=== PATIENT | female | born 1950 | race African-American/Black ===

== ENCOUNTER → 2016-12-12 | Outpatient (CLI) | payer OTHER, MEDICAID ==
--- NOTE | 2016-12-12 16:38 | DX ---
Right Humerus, 2 Views History: History of right humerus fracture and history of myeloma. Follow up. Comparison: September 2016. Findings: There is a transverse fracture at the surgical neck at the right humerus. There has been so me mild progressive foreshortening at the fracture with otherwise stable alignment. No evidence of br idging bone at the fracture. There is callus formation more predominantly laterally and posteriorly a t the fracture. There is diffuse demineralization. Impression: There has been progressive impaction at the fracture of the proximal right humerus with c allus formation but no bridging bone.
== END ==
LOC: FIMAGING 14:28
PROVIDERS: ATTEND Internal Medicine Hematology & Oncology
DX: S42.211G Unspecified displaced fracture of surgical neck of right humerus, subsequent encounter for fracture with delayed healing (principal); Z85.820 Personal history of malignant melanoma of skin

== ENCOUNTER → 2017-02-06 | Outpatient (CLI) | payer OTHER, MEDICAID | LOC: FLAB 15:05 | PROVIDERS: ATTEND Internal Medicine Hematology & Oncology | DX: S42.211D Unspecified displaced fracture of surgical neck of right humerus, subsequent encounter for fracture with routine healing (principal) ==

== ENCOUNTER → 2017-04-08 | Outpatient (CLI) | payer OTHER, MEDICAID | LOC: FIMAGING 12:35 | PROVIDERS: ATTEND Orthopaedic Surgery | DX: M84.421A Pathological fracture, right humerus, initial encounter for fracture (principal); C90.00 Multiple myeloma not having achieved remission; R93.6 Abnormal findings on diagnostic imaging of limbs; M75.111 Incomplete rotator cuff tear or rupture of right shoulder, not specified as traumatic; M75.51 Bursitis of right shoulder; M25.411 Effusion, right shoulder ==

== ENCOUNTER 2017-12-03 20:11 | Inpatient (IN) | payer OTHER, MEDICAID ==
--- NOTE | 2017-12-03 20:21 | CPEKG ---
Heart Rate: 87 RR Interval: 690 P-R Interval: 152 QRSD Interval: 100 QT Interval: 404 QTC Interval: 486 P Stratford: 59 QRS Stratford: -33 T Wave Stratford: 75 EKG Severity - ABNORMAL ECG - EKG Impression: UNKNOWN RHYTHM, IRREGULAR RATE 77-107 EKG Impression: LEFT AXIS DEVIATION EKG Impression: LVH WITH SECONDARY REPOLARIZATION ABNORMALITY EKG Impression: BORDERLINE PROLONGED QT INTERVAL EKG Impression: Similar to previous Electronically Signed By: Michael Love 03-Dec-2017 20:43:34
[2017-12-03] MEDS ORDERED: NS 2,500 ML IV ONE (20:29)
[2017-12-03] MEDS ORDERED: IPRATROPIUM/ALBUTEROL 3 ML DEYVIAL IH ONE (20:33)
--- NOTE | 2017-12-03 20:33 | EDPHY ---
H & P Stated Complaint: Congestion Time Seen by Provider: 12/03/17 20:25 HPI/ROS: CHIEF COMPLAINT: Cough, congestion HISTORY OF PRESENT ILLNESS: The patient is a 67-year-old female with a history of multiple myeloma who comes to the emergency department complaining of a cough and fever that began last 3 days. Tonight her called paramedics and when they arrived her oxygen saturations were 84%. She denies any history of pulmonary or cardiac disease. She denies chest pain, abdominal pain nausea vomiting or diarrhea. No headache. REVIEW OF SYSTEMS: Constitutional: See HPI EENTM: denies: blurred vision, double vision, nose congestion Respiratory: See HPI Cardiac: denies: chest pain, irregular heart rate, lightheadedness, palpitations Gastrointestinal/Abdominal: denies: abdominal pain, diarrhea, nausea, vomiting, blood streaked stools Genitourinary: denies: dysuria, frequency, hematuria, pain Musculoskeletal: denies: joint pain, muscle pain Skin: denies: lesions, rash, jaundice, bruising Neurological: denies: headache, numbness, paresthesia, tingling, dizziness, weakness Hematologic/Lymphatic: denies: blood clots, easy bleeding, easy bruising Immunologic/allergic: denies: HIV/AIDS, transplant EXAM: GENERAL: Well-appearing, overweight and in no acute distress. HEAD: Atraumatic, normocephalic. EYES: Pupils equal round and reactive to light, extraocular movements intact, sclera anicteric, conjunctiva are normal. ENT: TMs normal, nares patent, oropharynx clear without exudates. Moist mucous membranes. NECK: Normal range of motion, supple without lymphadenopathy or JVD. LUNGS: Bilateral rhonchi and some mild wheezing HEART: Regular rate and rhythm without murmurs, rubs or gallops. ABDOMEN: Soft, nontender, normoactive bowel sounds. No guarding, no rebound. No masses appreciated. BACK: No CVA tenderness, no spinal tenderness, step-offs or deformities EXTREMITIES: Normal range of motion, no pitting or edema. No clubbing or cyanosis. NEUROLOGICAL: Cranial nerves II through XII grossly intact. Normal speech, normal gait. 5/5 strength, normal movement in all extremities, normal sensation PSYCH: Normal mood, normal affect. SKIN: Warm, dry, normal turgor, no visible rashes or lesions. Source: Patient Exam Limitations: No limitations - Personal History Tetanus Vaccine Date: unsure - Medical/Surgical History Hx Asthma: No Hx Chronic Respiratory Disease: No Hx Diabetes: No Hx Cardiac Disease: No Hx Renal Disease: No Hx Cirrhosis: No Hx Alcoholism: No Hx HIV/AIDS: No Hx Splenectomy or Spleen Trauma: No Other PMH: MULTIPLE MYELOMA. Right mastectomy at age 18 for noncancerous lesion. Hypertension - Family History Significant Family History: No pertinent family hx - Social History Smoking Status: Never smoked Alcohol Use: Sober Constitutional: Initial Vital Signs Temperature (C) 38.1 C 12/03/17 20:16 Heart Rate 90 12/03/17 20:16 Respiratory Rate 20 12/03/17 20:16 Blood Pressure 125/58 H 12/03/17 20:16 O2 Delivery Mode Nasal Cannula O2 (L/minute) 2 Allergies/Adverse Reactions: No Known Allergies Allergy (Verified 12/03/17 20:25) Home Medications: Medication Instructions Recorded Acyclovir [Zovirax 400 mg (*)] 400 mg PO HS 11/15/11 Albuterol [Proventil Inhaler HFA 2 puffs IH Q4PRN PRN 11/15/11 (*)] Allopurinol 100 mg PO DAILY 11/15/11 Gabapentin [Neurontin 300 MG (*)] 900 mg PO BID 11/15/11 oxyCODONE/APAP 5/325 [Percocet 1 tab PO Q6H PRN 11/15/11 5/325 (*)] Ixazomib Citrate [Ninlaro] 4 mg PO AD 12/03/17 Potassium Cl [Klor-Con 10 meq (RX)] 10 meq PO BID 12/03/17 Dexamethasone [Decadron 4 MG (*)] 20 mg PO FR 12/05/17 Lenalidomide [Revlimid] 15 mg PO AD 12/05/17 Levobunolol 0.5% [BETAGAN 0.5% (*)] 1 drops EACHEYE BID 12/05/17 Sulfamethox/Tmp 800/160 mg 1 tab PO MWF 12/05/17 [Bactrim DS] HYDROcodone/CPM TUSSIONEX 5 ml PO HS #1 btl 12/06/17 [Tussionex Suspension (RX)] levOFLOXACIN [levAQUIN (*)] 750 mg PO DAILY #6 tab 12/06/17 Medical Decision Making - Diagnostics EKG Interpretation: An EKG obtained and was read and documented in trace view. Please see trace view for full reading and report. Sinus rhythm, slightly irregular, no acute ischemic changes Imaging: Discussed imaging studies w/ scallop shucker Radiologist ED Course/Re-evaluation: The patient appears to have left lower lobe infiltrate. She has severe sepsis but not septic shock. She has received a fluid bolus. She has received potassium supplementation. I will order antibiotics. I discussed the case with Dr. Camp who will admit to the medical service. Differential Diagnosis: Partial list of the Differential diagnosis considered include but were not limited to; influenza, pneumonia, sepsis, severe sepsis and although unlikely based on the history and physical exam, I also considered septic shock, acute coronary disease, PE, pulmonary edema. Critical Care Time: Critical care time spent by me, Dr. Love exclusive with this patient was 35 minutes, exclusive of the PA time exclusive of procedures. The organ system that was at risk was cardiovascular and I gave IV fluids, antibiotics, consultation and admission to prevent worsening of the patient's condition - Data Points Laboratory Results: Laboratory Results 12/03/17 20:12 12/03/17 20:12 Microbiology Results: MICROBIOLOGY 12/03/17 20:45 Blood Blood Culture - Preliminary 12/03/17 21:20 Blood Blood Culture - Preliminary Medications Given: Acetaminophen (Tylenol) 500 - 1,000 mg PO Q6HRS PRN PRN Reason: Pain, Mild/Fever, Can Take PO Stop: 06/01/18 21:30 Last Admin: 12/05/17 17:47 Dose: 1,000 mg Acyclovir (Acyclovir) 400 mg PO HS ELIAZAR Stop: 01/03/18 20:59 Last Admin: 12/05/17 21:36 Dose: 400 mg Albuterol/Ipratropium (Duoneb) 3 ml IH Q6HRS ELIAZAR Stop: 06/02/18 11:59 Last Admin: 12/06/17 10:50 Dose: 3 ml Allopurinol (Allopurinol) 100 mg PO DAILY ELIAZAR Stop: 06/03/18 08:59 Last Admin: 12/06/17 08:47 Dose: 100 mg Azithromycin (Zithromax) 500 mg PO DAILY ELIAZAR PRN Reason: Protocol Stop: 01/03/18 08:59 Last Admin: 12/06/17 08:47 Dose: 500 mg Dexamethasone (Decadron) 20 mg PO FR [facility] Stop: 06/03/18 14:59 Last Admin: 12/05/17 15:19 Dose: 20 mg Enoxaparin Sodium (Lovenox) 40 mg SC DAILY [facility] Stop: 06/02/18 08:59 Last Admin: 12/06/17 08:47 Dose: 40 mg Gabapentin (Neurontin) 900 mg PO BID [facility] Stop: 06/02/18 09:29 Last Admin: 12/06/17 08:47 Dose: 900 mg Potassium Chloride/Sodium Chloride (Ns W/ 20 Kcl/L) 1,000 mls @ 75 mls/hr IV CONT [facility] Stop: 06/01/18 21:44 Last Admin: 12/06/17 11:15 Dose: 1,000 mls Ceftriaxone Sodium 1 gm/ (Sterile Water) 10 mls @ 150 mls/hr IV DAILY [facility] PRN Reason: Protocol Stop: 01/03/18 08:59 Last Admin: 12/06/17 09:15 Dose: 10 mls Levobunolol HCl (Betagan 0.5%) 1 drops EACHEYE BID [facility] Stop: 06/03/18 20:59 Last Admin: 12/06/17 09:16 Dose: Not Given Ondansetron HCl (Zofran Odt) 4 mg PO Q4HRS PRN PRN Reason: Nausea/Vomiting, Use 1st Stop: 06/01/18 21:30 Last Admin: 12/05/17 17:38 Dose: 4 mg Oxycodone/Acetaminophen (Percocet 5/325) 1 tab PO Q6H PRN PRN Reason: *Pain Stop: 12/14/17 09:29 Last Admin: 12/05/17 08:41 Dose: 1 tab Potassium Chloride (Klor-Con) 10 meq PO BID [facility] Stop: 06/02/18 20:59 Last Admin: 12/06/17 08:47 Dose: 10 meq Trimethoprim/Sulfamethoxazole (Bactrim Ds) 1 ea PO MoWeFr [facility] PRN Reason: Protocol Stop: 01/04/18 15:14 Last Admin: 12/05/17 15:19 Dose: 1 ea Discontinued Medications Acetaminophen (Tylenol 160mg/5ml Oral Liquid) 1,000 mg PO ONCE ONE Stop: 12/03/17 21:30 Last Admin: 12/03/17 21:31 Dose: 1,000 mg Albuterol/Ipratropium (Duoneb) 3 ml IH EDNOW ONE Stop: 12/03/17 20:34 Last Admin: 12/03/17 21:11 Dose: 3 ml Sodium Chloride (Ns) 2,500 mls @ 5,000 mls/hr 30 ml/kg infuse over 30 min ( 2500 ml) IV EDNOW ONE PRN Reason: Protocol Stop: 12/03/17 20:58 Last Admin: 12/03/17 20:49 Dose: 2,500 mls Magnesium Sulfate (Magnesium Sulf 2 Gm (Premix)) 50 mls @ 50 mls/hr IV EDNOW ONE Stop: 12/03/17 21:44 Last Admin: 12/03/17 21:02 Dose: 50 mls Ceftriaxone Sodium 1 gm/ (Sterile Water) 10 mls @ 150 mls/hr IV EDNOW ONE PRN Reason: Protocol Stop: 12/03/17 21:05 Last Admin: 12/03/17 22:15 Dose: 10 mls Azithromycin 500 mg/ Dextrose 255 mls @ 255 mls/hr IV EDNOW ONE PRN Reason: Protocol Stop: 12/03/17 22:10 Last Admin: 12/03/17 22:09 Dose: 255 mls Magnesium Sulfate (Magnesium Sulf 2 Gm (Premix)) 50 mls @ 50 mls/hr IV ONCE ONE Stop: 12/04/17 08:46 Last Admin: 12/04/17 08:57 Dose: 50 mls Magnesium Sulfate/Dextrose (Magnesium Sulf 1 Gm (Premix)) 100 mls @ 100 mls/hr IV ONCE ONE Stop: 12/05/17 11:17 Last Admin: 12/05/17 10:47 Dose: 100 mls Potassium Chloride (Klor-Con) 40 meq PO EDNOW ONE Stop: 12/03/17 20:46 Last Admin: 12/03/17 21:02 Dose: 40 meq Potassium Chloride (Klor Packets) 40 meq PO EDNOW ONE Stop: 12/04/17 02:19 Last Admin: 12/04/17 02:50 Dose: 40 meq Potassium Chloride (Klor-Con) 10 - 40 meq PO ONCE ONE PRN Reason: Protocol Stop: 12/04/17 07:46 Last Admin: 12/04/17 08:56 Dose: 40 meq Potassium Chloride (Klor-Con) 30 meq PO ONCE ONE PRN Reason: Protocol Stop: 12/04/17 21:01 Last Admin: 12/04/17 21:55 Dose: 30 meq Potassium Chloride (Klor-Con) 10 - 40 meq PO ONCE ONE PRN Reason: Protocol Stop: 12/05/17 10:18 Last Admin: 12/05/17 10:48 Dose: 20 meq Potassium Chloride (Klor-Con) 10 meq PO ONCE ONE PRN Reason: Protocol Stop: 12/05/17 19:53 Last Admin: 12/05/17 21:36 Dose: 10 meq Departure - Departure Disposition: [facility] Inpatient Acute Clinical Impression: Severe sepsis, Hyperkalemia Pneumonia Qualifiers: Pneumonia type: due to unspecified organism Laterality: left Lung location: lower lobe of lung Qualified Code(s): J18.1 - Lobar pneumonia, unspecified organism Condition: Fair
[2017-12-03 20:38] LABS: PLATELET COUNT 90 10^3/uL (150-400)
[2017-12-03] MEDS ORDERED: MAGNESIUM SULF 2 GM/WATER 50 ML IV ONE (20:45)
[2017-12-03] MEDS ORDERED: POTASSIUM CL 20 MEQ TAB PO ONE (20:45)
[2017-12-03 20:46] LABS: INR 1.25 (0.83-1.16); PROTIME(PATIENT) 15.9 SEC (12.0-15.0)
[2017-12-03] MEDS ORDERED: cefTRIAXone 1 GM in STERILE WATER INJ 10 ML IV ONE (21:02)
[2017-12-03] MEDS ORDERED: AZITHROMYCIN IV 500 MG in D5W 250 ML IV ONE (21:11)
[2017-12-03] MEDS ORDERED: ACETAMINOPHEN 500 MG TAB ONE (21:28)
[2017-12-03] MEDS ORDERED: ACETAMINOPHEN 160 MG/5 ML UDCUP PO ONE (21:29)
[2017-12-03] MEDS ORDERED: ONDANSETRON DISINTEGRATING 4 MG TAB PO PRN (21:31)
[2017-12-03] MEDS ORDERED: ONDANSETRON 4 MG/2 ML VIAL IVP PRN (21:31)
[2017-12-03] MEDS ORDERED: PROTOCOL MAGNESIUM 1 DOSE IV PRN (21:33)
[2017-12-03] MEDS ORDERED: PROTOCOL POTASSIUM 1 DOSE MISC PRN (21:33)
[2017-12-03] MEDS: ACETAMINOPHEN 500 MG TAB PO PRN (21:36)
--- NOTE | 2017-12-03 21:54 | GHP ---
[f rep st] HISTORY AND PHYSICAL DATE OF ADMISSION: 12/03/2017 CHIEF COMPLAINT: Cough. HISTORY OF PRESENT ILLNESS: This is a 67-year-old female with a history of multiple myeloma getting active chemotherapy. She received therapy last Friday. She presents with cough and fever for about 3 days. She has had low oxygen saturation. She is producing sputum. No chest pain. No shortness o f breath. She has had nausea and decreased p.o. intake but no diarrhea. REVIEW OF SYSTEMS: A 10-point review of systems was obtained and other than stated negative. PAST MEDICAL HISTORY: Multiple myeloma and hypertension, glaucoma with near blindness. PAST SURGICAL HISTORY: Right mastectomy. FAMILY HISTORY: Reviewed and noncontributory. SOCIAL HISTORY: No smoking or alcohol, is . PHYSICAL EXAMINATION: VITAL SIGNS: Temperature is 38.1, blood pressure is 111/49, heart rate 82, ox ygen saturation 99% on 2 L. GENERAL: Patient is well developed, no apparent distress. HEENT: Izabela cteric sclerae. Extraocular movements intact. Dry mucous membranes. NECK: Supple. No thyromegaly . LUNGS: Good effort. Some scattered rhonchi bilaterally. CARDIOVASCULAR: Regular rate and rhyth m. No murmurs, gallops. ABDOMEN: Positive bowel sounds. Soft, nontender, nondistended. No hepato splenomegaly. EXTREMITIES: No clubbing, cyanosis, or edema. SKIN: Without rash, dry, intact. DANIA ROLOGIC: Alert and oriented x3. Moving all 4 extremities equally. PSYCH: Normal mood and affect. LABS: White blood cell count 5, hemoglobin 10, platelets are 90. Lactic acid is slightly elevated 2 .3. Chemistry shows sodium 132, potassium 2.6, creatinine is 1.3. Magnesium is 1.1. Chest x-ray pe rsonally reviewed and interpreted shows left lower lobe pneumonia. ASSESSMENT: This is a 67-year-old female presenting with community-acquired pneumonia. 1. Community-acquired pneumonia. We will continue ceftriaxone and azithromycin. 2. Mild hypoxic respiratory failure. Continue oxygen as needed. 3. Hypokalemia, hypomagnesemia, replete. 4. Multiple myeloma getting chemotherapy. /[id number]/MODL
[2017-12-03] MEDS: NS W/ 20 KCl/L 1,000 ML IV SCH (23:26)
[2017-12-04] MEDS ORDERED: POTASSIUM CL 20 MEQ PKT PO ONE (02:18)
[2017-12-04] MEDS: NS W/ 20 KCl/L 1,000 ML IV SCH ×2 (03:09→18:42)
[2017-12-04] MEDS: ACETAMINOPHEN 500 MG TAB PO PRN ×3 (03:35→09:18)
[2017-12-04 06:09] LABS: PLATELET COUNT 80 10^3/uL (150-400)
[2017-12-04] MEDS ORDERED: POTASSIUM CL 10 MEQ TAB PO ONE ×2 (07:45→21:00)
[2017-12-04] MEDS ORDERED: MAGNESIUM SULF 2 GM/WATER 50 ML IV ONE (07:47)
[2017-12-04] MEDS: ENOXAPARIN 40 MG/0.4 ML SYR SC SCH (08:56)
[2017-12-04] MEDS: AZITHROMYCIN 250 MG TAB PO SCH (08:57)
[2017-12-04] MEDS: cefTRIAXone 1 GM in STERILE WATER INJ 10 ML IV SCH (08:57)
[2017-12-04] MEDS ORDERED: ALBUTEROL 60 PUFFS/8 GM MDI IH PRN (09:30)
[2017-12-04] MEDS ORDERED: Ixazomib Citrate [Ninlaro] 4 MG PO SCH (09:30)
--- NOTE | 2017-12-04 09:47 | HOSPPROG ---
Hospitalist Progress Note Assessment/Plan: # RSV infection with possible superimposed bacterial pna in an immunocompromised patient - cont kenzieelbagracemary hussein - charissa # gastritis - neg GI panel - check AXR - treat symptomatically for now # multiple myeloma - follows with Dr Hines # hypoK/hypoMg - replete # CKD - at baseline # hypoNa - resolved # anemia - baseline Subjective: very nauseaus Objective: Vital Signs Temp Pulse Resp BP Pulse Ox 37.6 C 74 16 118/59 L 98 12/04/17 08:28 12/04/17 08:28 12/04/17 08:28 12/04/17 08:28 12/04/17 08:28 Microbiology 12/04/17 04:15 Gastrointestinal Tract Panel (PCR) - Final Stool No Organism Detected Laboratory Results 12/04/17 04:55 12/04/17 04:55 12/03/17 12/04/17 12/05/17 05:59 05:59 05:59 Intake Total 3350 Output Total 1900 Balance 1450 PT 15.9 SEC (12.0-15.0) H 12/03/17 20:12 INR 1.25 (0.83-1.16) H 12/03/17 20:12 chart reviewed CXR personally reviewed - Physical Exam Constitutional: uncomfortable Cardiovascular: regular rate and rhythym, no murmur, rub, or gallop Respiratory: other (tachypneic, mild rhonchi anteriorly, mild resp distress), No expiratory wheeze Gastrointestinal: normoactive bowel sounds, soft, non-tender abdomen ICD10 Worksheet Patient Problems: Problems Problem Status Onset Pneumonia Acute Severe sepsis Acute Hyperkalemia Acute
[2017-12-04] MEDS ORDERED: IPRATROPIUM/ALBUTEROL 3 ML DEYVIAL ONE (10:00)
[2017-12-04] MEDS: IPRATROPIUM/ALBUTEROL 3 ML DEYVIAL IH SCH ×3 (10:30→23:28)
--- NOTE | 2017-12-04 10:51 | PDMN ---
Medical Necessity Medical necessity: est los>2mn for community acquired PNA, mild hypoxic resp failure, hypokalemia, hypomagnesemia; admit for IV abx, supplemental O2, and follow/replace electrolytes;comorbid multiple myeloma currently on chemo, htn, hx breast CA, per H&P and order 12/03/17
[2017-12-04] MEDS: GABAPENTIN 300 MG CAP PO SCH ×2 (11:16→20:37)
--- NOTE | 2017-12-04 14:22 | ASMTCMCOM ---
CM Note CM Note Notes: Pt with hx of multiple myeloma admitted for PNA. PT is currently recommending HC, OT has nit evaluated yet. CM will continue to follow for DC plan. Date Signed: 12/04/2017 02:21 PM Electronically Signed By:Emi Vasquez LCSW
[2017-12-04] MEDS: OXYCODONE/APAP 5/325 TAB PO PRN (15:09)
[2017-12-04] MEDS: POTASSIUM CL 10 MEQ TAB PO SCH (20:36)
[2017-12-04] MEDS: ACYCLOVIR 400 MG TAB PO SCH (20:37)
[2017-12-05] MEDS: ACETAMINOPHEN 500 MG TAB PO PRN ×2 (00:16→17:47)
[2017-12-05] MEDS: IPRATROPIUM/ALBUTEROL 3 ML DEYVIAL IH SCH ×4 (05:40→21:59)
[2017-12-05] MEDS: NS W/ 20 KCl/L 1,000 ML IV SCH ×2 (08:07→21:45)
[2017-12-05 08:11] LABS: PLATELET COUNT 107 10^3/uL (150-400)
[2017-12-05] MEDS: AZITHROMYCIN 250 MG TAB PO SCH (08:31)
[2017-12-05] MEDS: GABAPENTIN 300 MG CAP PO SCH ×2 (08:31→21:36)
[2017-12-05] MEDS: POTASSIUM CL 10 MEQ TAB PO SCH ×2 (08:31→21:37)
[2017-12-05] MEDS: ALLOPURINOL 100 MG TAB PO SCH (08:32)
[2017-12-05] MEDS: ENOXAPARIN 40 MG/0.4 ML SYR SC SCH (08:32)
[2017-12-05] MEDS: cefTRIAXone 1 GM in STERILE WATER INJ 10 ML IV SCH (08:32)
[2017-12-05] MEDS: OXYCODONE/APAP 5/325 TAB PO PRN (08:41)
[2017-12-05] MEDS ORDERED: POTASSIUM CL 10 MEQ TAB PO ONE ×2 (10:17→19:52)
[2017-12-05] MEDS ORDERED: MAGNESIUM SULF 1 GM/DEXTROSE 100 ML IV ONE (10:18)
--- NOTE | 2017-12-05 11:51 | HOSPPROG ---
Hospitalist Progress Note Assessment/Plan: # RSV infection with likely superimposed bacterial pna in an immunocompromised patient - cont mary downs - dulori # fever - likely d/t above; will continue to monitor as inpatient for now # gastritis - resolved # multiple myeloma - follows with Dr Hines - pharmacy will clarify her regimen # hypoK/hypoMg - replete # CKD - at baseline # hypoNa - resolved # anemia - baseline Subjective: fever last night; still coughing Objective: Vital Signs Temp Pulse Resp BP Pulse Ox 37.4 C 89 16 129/48 H 89 L 12/05/17 07:39 12/05/17 11:16 12/05/17 11:16 12/05/17 07:39 12/05/17 11:16 Microbiology 12/04/17 04:15 Gastrointestinal Tract Panel (PCR) - Final Stool No Organism Detected Laboratory Results 12/05/17 08:05 12/05/17 08:05 12/04/17 12/05/17 12/06/17 05:59 05:59 05:59 Intake Total 3350 3591 Output Total 1900 3150 Balance 1450 441 PT 15.9 SEC (12.0-15.0) H 12/03/17 20:12 INR 1.25 (0.83-1.16) H 12/03/17 20:12 AXR reviewed - Physical Exam Constitutional: uncomfortable Cardiovascular: regular rate and rhythym, no murmur, rub, or gallop Respiratory: no respiratory distress, inspiratory crackles (L base), No reduced air movement, No expiratory wheeze Gastrointestinal: normoactive bowel sounds, soft, non-tender abdomen, no palpable masses ICD10 Worksheet Patient Problems: Problems Problem Status Onset chronic disease mgmt/transitional care Acute Pneumonia Acute Severe sepsis Acute Hyperkalemia Acute
[2017-12-05] MEDS ORDERED: DEXAMETHASONE 4 MG TAB PO SCH (15:00)
[2017-12-05] MEDS ORDERED: SULFAMETHOX/TMP 800/160 MG 1 TAB PO SCH (15:15)
--- NOTE | 2017-12-05 15:40 | ASMTCMCOM ---
CM Note CM Note Notes: Pt admitted with PNA and RSV. Pt has hx of multiple myeloma. PT/OT are recommending HC. Pt has used [facility] in past and said she would like to use again. [facility] alerted. CM to follow. Date Signed: 12/05/2017 03:39 PM Electronically Signed By:Emi Vasquez LCSW
[2017-12-05] MEDS: ACYCLOVIR 400 MG TAB PO SCH (21:36)
[2017-12-05] MEDS: LEVOBUNOLOL 0.5% 5 ML OPHT.BTL EACHEYE SCH (21:39)
[2017-12-06] MEDS: IPRATROPIUM/ALBUTEROL 3 ML DEYVIAL IH SCH ×2 (05:33→10:50)
[2017-12-06 05:49] LABS: PLATELET COUNT 124 10^3/uL (150-400)
[2017-12-06 07:43] VITALS: BP 126/77; TEMP 98.4; O2SAT 95
[2017-12-06] MEDS: POTASSIUM CL 10 MEQ TAB PO SCH (08:47)
[2017-12-06] MEDS: AZITHROMYCIN 250 MG TAB PO SCH (08:47)
[2017-12-06] MEDS: GABAPENTIN 300 MG CAP PO SCH (08:47)
[2017-12-06] MEDS: ALLOPURINOL 100 MG TAB PO SCH (08:47)
[2017-12-06] MEDS: ENOXAPARIN 40 MG/0.4 ML SYR SC SCH (08:47)
[2017-12-06] MEDS: cefTRIAXone 1 GM in STERILE WATER INJ 10 ML IV SCH (09:15)
[2017-12-06] MEDS: LEVOBUNOLOL 0.5% 5 ML OPHT.BTL EACHEYE SCH (09:16)
[2017-12-06 10:58] VITALS: PULSE 74; RESP 24
[2017-12-06] MEDS: NS W/ 20 KCl/L 1,000 ML IV SCH (11:15)
--- NOTE | 2017-12-06 12:02 | PDIAF ---
- Diagnosis Diagnosis: pneumonia Code Status: Full Code - Medication Management Discharge Medications: Medications to Continue on Transfer Acyclovir [Zovirax 400 mg (*)] 400 mg PO HS 11/15/11 [Last Taken 12/02/17] Albuterol [Proventil Inhaler HFA (*)] 2 puffs IH Q4PRN PRN 11/15/11 [Last Taken 1 Month Ago ~11/02/17] Allopurinol 100 mg PO DAILY 11/15/11 [Last Taken 12/03/17] Gabapentin [Neurontin 300 MG (*)] 900 mg PO BID 11/15/11 [Last Taken 12/03/17 09 :00] oxyCODONE/APAP 5/325 [Percocet 5/325 (*)] 1 tab PO Q6H PRN 11/15/11 [Last Taken 12/02/17] Ixazomib Citrate [Ninlaro] 4 mg PO AD 12/03/17 [Last Taken Unknown] Potassium Cl [Klor-Con 10 meq (RX)] 10 meq PO BID 12/03/17 [Last Taken 12/03/17 09:00] Dexamethasone [Decadron 4 MG (*)] 20 mg PO FR 12/05/17 [Last Taken Unknown] Lenalidomide [Revlimid] 15 mg PO AD 12/05/17 [Last Taken Unknown] Levobunolol 0.5% [BETAGAN 0.5% (*)] 1 drops EACHEYE BID 12/05/17 [Last Taken Unknown] Sulfamethox/Tmp 800/160 mg [Bactrim DS] 1 tab PO MWF 12/05/17 [Last Taken Unknown] HYDROcodone/CPM TUSSIONEX [Tussionex Suspension (RX)] 5 ml PO HS #1 btl [Last Taken Unknown] levOFLOXACIN [levAQUIN (*)] 750 mg PO DAILY #6 tab 12/06/17 [Last Taken Unknown] Discharge Medications: Refer to the Discharge Home Medication list for PRN reason. - Orders Services needed: Home Care, Registered Nurse, Physical Therapy, Occupational Therapy Home Care Face to Face: I certify that this patient was under my care and that I had the required [id number] encounter meeting the encounter requirements on the discharge day. My findings support the fact that the patient is homebound as defined in Home Care Face to Face Continued: [facility] Chapter 7 Medicare Benefits Manual 30.1.1 , The condition of the patient is such that there exists a normal inability to leave home and consequently, leaving home would require a considerable and taxing effort. Isolation Type: Droplet Isolation Diet Recommendation: no restrictions on diet - Follow Up Care Current Providers and Referrals: Patient,NotPresent [Unknown] - As per Instructions
[2017-12-06] MEDS: OXYCODONE/APAP 5/325 TAB PO PRN (13:18)
--- NOTE | 2017-12-06 13:35 | ASDISCHSUM ---
Discharge Information Plan Status:Home with Home Health Medically Cleared to Leave:12/05/2017 Discharge Date:12/05/2017 D/C Disposition:Home Health Service ADT D/C Disposition:Home, Routine, Self-Care Projected Discharge Date:12/08/2017 11:00 AM Transportation at D/C:Family Discharge Delay Reason: Follow-Up Date:12/08/2017 11:00 AM Discharge Slot: Final Diagnosis: Placement Information Referral Type:*Home Health Care Services Referral ID:[id number] Provider Name:[facility] Address 1:[address] [facility] [address] Address 2: City:[place] Selection Factors: State:[place] Patient Contact Information Contact Name:JOSEHAWA Relationship: Address:[address] City:[place] Alternate Phone: State/Zip Code:[place] [address] Email: Financial Information Financial Class: Primary Plan Desc:MEDICARE INPATIENT Primary Plan Number:[id number] Secondary Plan Desc:MED[place] Secondary Plan Number:[id number] Assessment Information [facility] CM Progress Note CM Note CM Note Notes: Pt with hx of multiple myeloma admitted for PNA. PT is currently recommending HC, OT has nit evaluated yet. CM will continue to follow for DC plan. Date Signed: 12/04/2017 02:21 PM Electronically Signed By:Emi Vasquez LCSW [facility] CM Progress Note CM Note CM Note Notes: Pt admitted with PNA and RSV. Pt has hx of multiple myeloma. PT/OT are recommending HC. Pt has used [facility] in past and said she would like to use again. [facility] alerted. CM to follow. Date Signed: 12/05/2017 03:39 PM Electronically Signed By:Emi Vasquez LCSW Intervention Information Intervention Type:*Incorrect Registration Date of Service:12/04/2017 10:44 AM Patient Type:Observation Staff Member:TRISH De Anda Susan Hours: Discipline: Severity: Comment:
[2017-12-06] MEDS ORDERED: MAGNESIUM SULF 1 GM/DEXTROSE 100 ML IV ONE (13:55)
--- NOTE | 2017-12-06 14:09 | GDS ---
[f rep st] DISCHARGE SUMMARY ALL DIAGNOSES: 1. Respiratory syncytial virus infection. 2. Likely superimposed bacterial pneumonia. 3. Fever. 4. Gastritis. 5. Multiple myeloma. 6. Hypokalemia. 7. Hypomagnesemia. 8. Chronic kidney disease. 9. Hyponatremia. 10. Anemia. HOSPITAL COURSE: A 67-year-old female admitted with pulmonary symptoms. Chest x-ray showed a left l ower lobe pneumonia. Viral panel was positive for RSV. Given her immunocompromise an infiltrate see n on x-ray, I have elected to treat her for a superimposed bacterial pneumonia. She has received com munity-acquired pneumonia treatment, including azithromycin, as well as Rocephin. She will be transi tioned to [facility] on discharge. She has had ongoing fevers, though she is anxious to go home, and I think that this is to be expected at this point. I have warned her that, if these fevers continue, this may indicate inadequate treatment of her condition. She is on room air and feeling well otherwi se. She is treated by Dr. Pike for multiple myeloma. She is due to take another dose of her therapy ne xt Friday, though she will follow up with him prior to this to discuss holding off on therapy, given her pneumonia. She has an appointment with him already for next Friday which is 4 days after disc harge. She will continue taking her acyclovir and Bactrim in the interim. Her hemoglobin has been l ow but stable at 9.5, renal function stable at 0.9. She had significant electrolyte abnormalities which have resolved with repletion. She additionally h ad a GI illness on presentation causing vomiting. Her GI panel was negative notably. FOLLOWUP: 1. Dr. Pike. 2. Dr. Hines as needed. BILLING: I spent more than 30 minutes on the day of discharge coordinating care. Copy requested to: Dr. Pike /[id number]/MODL
--- NOTE | 2017-12-08 14:00 | HOSPPROG ---
Hospitalist Progress Note Assessment/Plan: Discussed with Niesha Giordano. Pharmacist at [facility] had refused to fill levaquin given concern for interaction with Azithromycin. I called the patient and left her a message explaining that I had called in Omnicef to her pharmacy. Objective: Vital Signs Temp Pulse Resp BP Pulse Ox 36.9 C 74 24 H 126/77 H 95 12/06/17 07:43 12/06/17 10:53 12/06/17 10:53 12/06/17 07:43 12/06/17 10:53 Laboratory Results 12/06/17 04:59 12/06/17 04:59 PT 15.9 SEC (12.0-15.0) H 12/03/17 20:12 INR 1.25 (0.83-1.16) H 12/03/17 20:12 ICD10 Worksheet Patient Problems: Problems Problem Status Onset Hyperkalemia Acute Pneumonia Acute Severe sepsis Acute chronic disease mgmt/transitional care Acute
[2017-12-12] MEDS ORDERED: Ixazomib Citrate [Ninlaro] 4 MG PO SCH (09:00)
[2017-12-12] MEDS ORDERED: Lenalidomide [Revlimid] 15 MG PO SCH (09:00)
== END 2017-12-06 13:42 | disposition home health service (06) | DRG 193 ==
LOC: EDUNIT# → OBSVTOIN 21:31 → F1N 12-04 03:04
PROVIDERS: ADMIT Internal Medicine; ATTEND Internal Medicine
DX: J15.9 Unspecified bacterial pneumonia (principal); J96.91 Respiratory failure, unspecified with hypoxia; B97.4 Respiratory syncytial virus as the cause of diseases classified elsewhere; E87.6 Hypokalemia; E83.42 Hypomagnesemia; C90.00 Multiple myeloma not having achieved remission; I12.9 Hypertensive chronic kidney disease with stage 1 through stage 4 chronic kidney disease, or unspecified chronic kidney disease; N18.9 Chronic kidney disease, unspecified; H40.9 Unspecified glaucoma
CPT/HCPCS: 96365; 97110-GP; 97116-GP; 97162-GP; 97166-GO; 97535-GO; G8978-GP-CJ; G8978-GP-CK; G8979-GP-CJ; G8980-GP-CJ; G8987-GO-CJ; G8988-GO-CI; J0456; J0696; J1650; J3475